=== PATIENT | male | born 1975 ===

== ENCOUNTER 2021-04-10 11:15 | Emergency (ER) | payer OTHER ==
[~2021-04-10] VITALS: Ht 177.8 cm; Wt 117.9 kg
[2021-04-10 12:05] LABS: Basophils # (auto) 0 10 ^3/uL (0-0.2); Eosinophils # (auto) 0.1 10 ^3/uL (0-0.8); Hematocrit 39.2 % (41.0-53.0); Mean Corpuscular Hgb Conc. 35.8 g/dL (32.0-36.0); Monocytes # (auto) 0.7 10 ^3/uL (0-1.3)
[2021-04-10 12:07] LABS: Basophils % (auto) 0.3 % (0.0-2.0); Eosinophils % (auto) 1.4 % (0.0-7.0); Lymphocytes # (auto) 2.3 10 ^3/uL (0.4-5.4); Lymphocytes % (auto) 29.9 % (10.0-50.0); Mean Corpuscular Hemoglobin 32.6 pg (28.0-32.0); Mean Corpuscular Volume 91.1 fL (80.0-100.0); Monocytes % (auto) 9.2 % (0.0-12.0); Neutrophils # (auto) 4.5 10 ^3/uL (1.6-8.6); Neutrophils % (auto) 59.2 % (37.0-80.0); Nucleated Red Blood Cells % 0.1 %; Red Blood Cells 4.31 10^6/uL (4.5-5.90); Red Cell Distribution Width 12.7 % (11.8-14.3); White Blood Cell 7.6 10^3/uL (4.4-10.8)
[2021-04-10 12:32] LABS: Potassium 3.8 mmol/L (3.5-5.1)
[2021-04-10 12:37] LABS: Albumin 3.5 g/dL (3.4-5.0); BUN/Creatinine Ratio 8.2; Bilirubin, Total 0.6 mg/dL (0.2-1.0); Calcium 8.9 mg/dL (8.5-10.1); Total Protein 8.1 g/dL (6.4-8.2)
[2021-04-10 16:45] VITALS: BP 130/62
[2021-04-10 17:10] VITALS: BP 134/86
[2021-04-10 18:25] VITALS: BP 129/86
== END 2021-04-10 18:35 | disposition home or self-care (01) ==
LOC: ER 11:15
DX: D69.6 Thrombocytopenia, unspecified (principal); I10 Essential (primary) hypertension
CPT/HCPCS: 36415; 36430; 80053; 85025; 86850; 86900; 86901; 93005; 99285; P9035